=== PATIENT | female | born 1960 | race Caucasian/White ===

== ENCOUNTER 2019-12-24 11:16 | Inpatient (IN) | payer OTHER ==
[~2019-12-24] VITALS: Ht 162.6 cm; Wt 85.8 kg
--- NOTE | 2019-12-24 12:02 | NUR ---
ASSUMED PATIENT CARE. PATIENT TO BED 11 WITH C/O LEFT LOWER LEG PAIN/SWELLING/REDNESS WORSE X 1 WEEK.-COUGH, -FEVER,-SOB, REPORTS FEELING "WEAKER THAN NORMAL"
[2019-12-24 12:26] LABS: CALCIUM 8.2 mg/dL (8.5-10.1); CARBON DIOXIDE 25.8 mmol/L (21-32); CHLORIDE SERUM 93 mmol/L (98-107); CREATININE SERUM 1.3 mg/dL (0.6-1.0); GFR1 45 mL/min; GLUCOSE SERUM 117 mg/dL (74-106); POTASSIUM SERUM 3.3 mmol/L (3.5-5.1); SODIUM SERUM 129 mmol/L (136-145)
[2019-12-24 12:30] LABS: ALKALINE PHOSPHATASE 83 U/L (46-116); ALT/SGPT 39 U/L (14-59); AST/SGOT 49 U/L (15-37); TOTAL PROTEIN, SERUM 7.6 g/dL (6.4-8.2)
[2019-12-24 12:31] LABS: ALBUMIN 2.8 g/dL (3.4-5.0)
[2019-12-24 12:40] LABS: RED CELL DISTRIBUTION WIDTH 13.5 % (11.5-14.5)
[2019-12-24 12:50] LABS: PLATELET COUNT 123 x10^3mcL (130-400)
[2019-12-24 13:08] LABS: MONOCYTE 5 % (0-7); SEGMENTED NEUTROPHILS 85 % (37-75); rbc morphology (normal/abnorm) NORMAL (NORMAL)
--- NOTE | 2019-12-24 15:35 | NUR ---
PT TO 237 A-- REPORT TO WILIAM
[2019-12-24 16:26] VITALS: BP 109/53
--- NOTE | 2019-12-24 16:37 | NUR ---
RECEIVED PT FROM ER, PT ADMIT FOR LEFT LEG CELLULITIS. PT IS A/O X4, VERBAL RESPONSIVE. LUNG SOUND CLEAR BILATERAL, NO COUGH, NO SOB. PT IS ON 2L/MIN O2 VIA NC. PO2 95% JUST FOR COMFORT. PT IS ON TELE 24, NSR AT THIS MOMENT, DENY ANY CHEST PAIN OR DISCOMFORT. BOWEL SOUND PRESENT ALL 4 QUADRANTS, NO DISTENTION, NO TENDER. PEDAL PULSE PRESENT BOTH FEET, LEFT LOWER LEG RED AND SWELLING, NO OPEN SKIN NOTED AT THIS TIME. PT ADMIT SHE TOOK ILLEGAL DRUG SPEED YESTERDAY. AND LAST ETOH INTAKE WAS THE DAY BEFORE YESTERDAY. IV AT LEFT WRIST, NO LEAKING, NO INFILTRATION. ALL ADLS ASSIST, ALL NEED MET, CALL LIGHT IN REACH, WILL CONTINUE TO MONITOR.
--- NOTE | 2019-12-24 17:32 | NUR ---
NOTIFIED MD OF LEFT LEG X RAY RESULTS. RESULTS WERE NEGATIVE. NO FURTHER ORDERS AT THIS TIME.
--- NOTE | 2019-12-24 18:23 | NUR ---
NOTIFIED DR. ELY OF PATIENT'S POTASSIUM WHICH IS 3.3. AWAITING SUPPLEMENT ORDER. OTHERWISE, PATIENT HAS VOIDED, LINENS WERE CHANGED, AND PATIENT WAS SET UP TO EAT DINNER. WILL CONTINUE TO MONITOR PATIENT.
--- NOTE | 2019-12-24 20:00 | NUR ---
PT RESTING WITH EYES CLOSED. EASILY AROUSABLE WITH VERBAL STIMULI. A/A/O X4. DENIES DIZZINESS AND HEADACHE. BREATH SOUNDS CLEAR. BREATHING EVEN AND UNLABORED ON 2L NC, SPO2 95%. DENIES CHEST PAIN AND PRESSURE. BOWEL SOUNDS ACTIVE. NO C/O N/V AND ABD PAIN. ERYTHEMA AND SWELLING NOTED ON THE LEFT LOWER EXTREMITY SENIOR MEDIA PLANNER WARM TO TOUCH AND PAINFULL WHEN PRESSED. IV INTACT ON THE RIGHT WRIST INFUSING WITH NS AT 70 ML/HR. MADE PT COMFORTABLE. PLACED CALL LIGHT WITH IN REACH. WILL CONTINUE TO MONITOR.
[2019-12-24 20:52] VITALS: BP 101/59
[2019-12-25] VITALS (9 sets, daily range): BP systolic 76–105; BP diastolic 33–52
--- NOTE | 2019-12-25 01:34 | NUR ---
PT RESTING WITH EYES CLOSED. NO DISTRESS AND DISCOMFORT NOTED. WILL CONTINUE TO MONITOR.
--- NOTE | 2019-12-25 01:54 | NUR ---
PT RESTING WITH EYES CLOSED. NO DISTRESS AND DISCOMFORT NOTED. MADE PT COMFORTABLE. WILL CONTINUE TO MONITOR.
--- NOTE | 2019-12-25 05:59 | NUR ---
DR. ELY ACCOMPANIED TO THE PATIENTS ROOM. DOCTOR PUT SKIN JAMEY ON THE PATIENTS LEFT LEG. PT TOLERATED IT WELL. DENIES NEED FOR PAIN MEDICATION WHEN OFFERED. PATIENTS LEFT LEG WAS WARM TO TOUCH AND TIP OF TOES AND SOLE OF FEET WAS COOL TO TOUCH. USED DOPPLER TO HEAR PULSE OF THE PT. SUCCESFULLY HEARED PEDAL PULSE AND AND TIBIAL PULSE. DR. ELY MADE AWARE. WILL ENDORSE TO THE AM NURSE ACCORDINGLY.
--- NOTE | 2019-12-25 07:30 | NUR ---
PATIENT IS A&OX4, FOLLOWS COMMANDS AND COOPERATES WELL. HOWEVER, PATIENT DROWSY AT THIS TIME, RESPONDS TO VERBAL AND TACTILE STIMULI. TELE #24, ST, DENIES CHEST PAIN, NORMAL S1S2 HEART SOUNDS. PERIPHERAL PULSES PALPABLE W/ RLE +1 EDEMA, AND LLE +2 EDEMA. LUNG SOUNDS CTA BILATERALLY, ON 2L NC, O2 SAT 100%, DENIES SOB. NORMAOCTIVE BSX4, ABD SOFT AND FLAT, DENIES ABD PAIN. VOIDS USING BEDPAN. AMBUILATES WITH ASSISTANCE. BEDREST AT THIS TIME. LLE ERYTHEMA AND SWELLING NOTED. DENIES PAIN AT THIS TIME. IV SITE IS CDI. WILL CONTINUE TO MONITOR.
[2019-12-25 08:56] LABS: BASOPHIL % 0.2 % (0-2); PLATELET COUNT 142 x10^3mcL (130-400); RED CELL DISTRIBUTION WIDTH 13.7 % (11.5-14.5)
[2019-12-25 09:02] LABS: CALCIUM 7.7 mg/dL (8.5-10.1); CARBON DIOXIDE 29.9 mmol/L (21-32); CHLORIDE SERUM 98 mmol/L (98-107); CREATININE SERUM 0.8 mg/dL (0.6-1.0); GFR1 > 60 mL/min; GLUCOSE SERUM 191 mg/dL (74-106); POTASSIUM SERUM 3.3 mmol/L (3.5-5.1); SODIUM SERUM 131 mmol/L (136-145)
--- NOTE | 2019-12-25 12:30 | NUR ---
ZOFRAN GIVEN IV ON THE RFA NOT LFA. RESTARTS A NEW IV. IVF CAME OUT.
--- NOTE | 2019-12-25 12:35 | NUR ---
PER DR. SOLIS MD ORDERD 1000 ML NS BOLUS AT 1000 ML/HR DUE TO PATIENT'S LOW BLOOD PRESSURE. WILL RECHECK VITAL SIGNS WITHIN AN HOUR.
--- NOTE | 2019-12-25 14:23 | NUR ---
PATIENT'S BLOOD PRESSURE WAS 80/44 AFTER 1000 CC BOLUS OF NS. WILL PAGE DR. ELY, AND WILL RECHECK BP EVERY HOUR.
--- NOTE | 2019-12-25 14:58 | NUR ---
PATIENT HAD BM USING BEDSIDE COMMODE WITH MODERATE ASSISTANCE. WILL CONTINUE TO MONITOR PATIENT AT THIS TIME BLOOD PRESSURE IS LOW.
--- NOTE | 2019-12-25 18:34 | NUR ---
PATIENT'S BLOOD PRESSURE CURRENTLY AFTER FLUID BOLUS IS 85/49. PATIENT IS ASYMPTOMATIC AT THIS TIME AND DENIES ANY PAIN OR DISCOMFORT IN HER LEFT LEG. PATIENT IS CURRENTLY EATING DINNER. WILL ENDORSE DAY OF EVENTS TO HEALTH AND WELLNESS DIRECTOR NURSE.
--- NOTE | 2019-12-25 18:51 | NUR ---
MD WAS MADE AWARE OF CURRENT BLOOD PRESSURE OF 85/49 (61). MD STATED HE WILL ASSESS THE PATIENT'S FLUID STATUS. NO FURTHER ORDERS AT THIS TIME.
--- NOTE | 2019-12-25 19:30 | NUR ---
PT RECEIVED IN BED AWAKE, APPEARS TO BE DROWSY. PER REPORT PT HAS HAD LOW BLOOD PRESSURE AFTER GIVEN LASIX MEDICATION IN AM SHIFT. ASSESSED PT AT THIS TIME, PT IS A/O X 3, BP 82/36, HR 76 TAKEBN AT THE LEFT ARM. PT REPORTED FEELING OF DIZZY. PT PLACED IN TRENDELENBERG POSITION, RETAKEN BP AFTER 5 MIN 86/36. NOTIFIED DR. CAMARGO AND CHARGE NURSE STAN. WILL CONT TO MONITOR PT.
--- NOTE | 2019-12-25 19:50 | NUR ---
PT WAS SEEN AND EXAMINED BY DR. CAMARGO, CHARGE NURSE AT BED SIDE. BP TAKEN AT THE LEFT ARM, BP 77/45, HR 78, SPO2 95% 1L VIA NC. PT DENIED DIZZINESS AT THIS TIME. AWAITING FOR DR ESPINOZA.
--- NOTE | 2019-12-25 20:10 | NUR ---
IV INFILTRATED, CHARGE NURSE STAN AND RESOURCE NURSE MYRIAM TRYING TO ESTABLISH IV ACCESS, DR. CAMARGO AT BED SIDE PLANNING TO GIVE BOLUS.
--- NOTE | 2019-12-25 20:35 | NUR ---
PT RECEIVED IN BED AWAKE, APPEARS TO BE DROWSY. PER REPORT PT HAS HAD LOW BLOOD PRESSURE AFTER GIVEN LASIX MEDICATION IN AM SHIFT. ASSESSED PT AT THIS TIME, PT IS A/O X 3, BP 82/36, HR 76 TAKEBN AT THE LEFT ARM. PT REPORTED FEELING OF DIZZY. PT PLACED IN TRENDELENBERG POSITION, RETAKEN BP AFTER 5 MINS 86/36. NOTIFIED DR. CAMARGO AND CHARGE NURSE STAN. WILL CONT TO MONITOR PT.
--- NOTE | 2019-12-25 20:45 | NUR ---
BOLUS STARTED PER MD ORDER,PT HAS NO C/O DIZZINESS, BP 87/46, HR 78, SPO2 99% 1L VIA NC. WILL CONT TO MONITOR PT.
[2019-12-25 22:31] LABS: CALCIUM 7.6 mg/dL (8.5-10.1); CARBON DIOXIDE 28.8 mmol/L (21-32); CHLORIDE SERUM 104 mmol/L (98-107); GFR1 > 60 mL/min; GLUCOSE SERUM 121 mg/dL (74-106); POTASSIUM SERUM 3.9 mmol/L (3.5-5.1); SODIUM SERUM 135 mmol/L (136-145)
[2019-12-26 00:30] VITALS: BP 102/41
--- NOTE | 2019-12-26 00:48 | NUR ---
PT C/O OF LLE PAIN 11/27, REPOSITIONED PT, ELEVATED LLE, TORADOL GIVEN ORDERED. WILL CONT TO MONITOR PT FOR CHANGES IN CONDITION.
[2019-12-26 01:23] VITALS: BP 99/34
--- NOTE | 2019-12-26 01:43 | NUR ---
2.5 L TOTAL NS BOLUS ADMINISTERED, DR. CUTLER AWARE OF VS. PT PLACED ON MAINTANING FLUIDS NS @ 150 ML/HR PER MD ORDER. PT REPORT DECREASE IN PAIN TO 3/10, TOLERABLE AT THIS TIME. WILL CONT TO MONITOR.
--- NOTE | 2019-12-26 03:35 | NUR ---
TRANSFER NOTE: PEPITO ARRIVED VIA BED WITH THREE RN'S ON TACK MAKER. ASSISTED INTO THE BED AND PLACED ON MONITOR. LEFT LOWER LEG NOTED WITH EDEMA AND REDNESS NOTED. DR. OBRIEN INFORMED THAT THE PATIENT BLOOD PRESSURE IS LOW. PLANS FOR CENTRAL LINE. STARTED #20 GAUGE IN LEFT FOREARM PATIENT TOLERATED THIS WELL. WILL CONTINUE TO MONITOR. VANCOMYCIN UP AND INFUSING.
--- NOTE | 2019-12-26 05:45 | NUR ---
PT REFUSED CENTRAL LINE. DR FERNANDES, DR OBRIEN. PRESENT UPON PT REFUSAL. INFORMED OF REASONING FOR PROCEDURE AND RISKS. PT STILL CONTINUED REFUSAL.
--- NOTE | 2019-12-26 06:03 | NUR ---
PATIENT UNCOOPERATIVE WHILE THE RESIDENTS WERE TRYING TO PUT IN CENTRAL LINE. rESIDENT DECIDED TO WAIT UNTIL SEDATION KICKS IN
--- NOTE | 2019-12-26 07:30 | NUR ---
Levophed titrated down to 3 mcg/kg/min. BP:134/67, MAP:88. Will conitnue to monitor.
[2019-12-26 08:30] VITALS: BP 98/51
--- NOTE | 2019-12-26 08:30 | NUR ---
UPON ASSESSMENT, NOTED SWELLING AND REDNESS TO PT'S RH DUE TO IV INFILTRATION. RH PERIPHERAL 24G IV WAS DISCONTINUED. ARM WAS ELEVATED, RINGS WERE REMOVED AND PLACED IN PERSONAL BELONGINGS. NURSING MEASURES APPLY. WILL CONTINUE TO MONITOR.
--- NOTE | 2019-12-26 10:00 | NUR ---
DR. YEAGER AT BEDSIDE FOR ROUNDS, MADE KNOWN OF PT. SEDATION, MADE AWARE THAT LOVENOX ORDER HAD FALLEN OFF, 80 MG LOVENOX ORDERED VERIFIED BY DR. SWANSON AND PHARMACY, WILL CONTINUE TO MONITOR
[2019-12-26 10:02] LABS: RED CELL DISTRIBUTION WIDTH 13.2 % (11.5-14.5)
[2019-12-26 10:09] LABS: PLATELET COUNT 122 x10^3mcL (130-400)
--- NOTE | 2019-12-26 10:20 | NUR ---
DR SAMANIEGO AT BEDSIDE. ALL UPDATES PROVIDED. INFORMED PT ONLY HAD 1 PERIPHERAL IV AT THIS TIME AND PT IS ON PRESSORS. PER DR SAMANIEGO, PICC PLACEMENT NEEDED. WILL CARRY OUT ORDERS AND CONTINUE TO MONITOR.
[2019-12-26 10:26] LABS: CALCIUM 7.4 mg/dL (8.5-10.1); CARBON DIOXIDE 22.2 mmol/L (21-32); CHLORIDE SERUM 106 mmol/L (98-107); CREATININE SERUM 0.6 mg/dL (0.6-1.0); GFR1 > 60 mL/min; GLUCOSE SERUM 107 mg/dL (74-106); MAGNESIUM 1.7 mg/dL (1.8-2.4); PHOSPHOROUS 1.5 mg/dL (2.5-4.9); POTASSIUM SERUM 4.1 mmol/L (3.5-5.1); SODIUM SERUM 138 mmol/L (136-145)
--- NOTE | 2019-12-26 10:40 | NUR ---
dr uriarte and residents at bedside for morning rounds, all updates provided, per dr mark picc line to be ordered. primary rn made aware. will carry out orders and continue to monitor.
--- NOTE | 2019-12-26 10:51 | NUR ---
TITRATED LEVOPHED TO 2 MCG/MIN. BP IS 109/55, [place]:69. WILL CONTINUE TO MONITOR.
--- NOTE | 2019-12-26 11:29 | NUR ---
PICC LINE PLACE TO RUE. PT TOLERATED PROCEDURE WELL. PT IS STABLE AT THIS TIME. WILL CONTINUE TO MONITOR.
[2019-12-26 11:30] VITALS: BP 98/41
[2019-12-26 11:39] LABS: AMPHETAMINE QUAL UR POSITIVE (See below)
[2019-12-26 11:56] LABS: BAND NEUTROPHIL 1 % (0-10); MONOCYTE 8 % (0-7); SEGMENTED NEUTROPHILS 72 % (37-75)
[2019-12-26 11:57] LABS: rbc morphology (normal/abnorm) NORMAL (NORMAL)
--- NOTE | 2019-12-26 13:12 | NUR ---
LEVOPHED IS NOW INFUSING AT 1MCG/MIN. BP:123/51, MAP:70. WILL CONTINUE TO MONITOR.
--- NOTE | 2019-12-26 14:28 | NUR ---
LEVOPHED IS NOW OFF. BP:116/49, MAP:71. WILL CONTINUE TO MONITOR.
--- NOTE | 2019-12-26 14:53 | NUR ---
PT REMAINS STABLE AT THIS TIME. PT IS RESTING IN BED AND NO S/SX OF DISTRESS NOTED. BP REMAINS STABLE AT THIS TIME. WILL CONTINUE TO MONITOR.
[2019-12-26 15:35] VITALS: BP 105/50
--- NOTE | 2019-12-26 19:18 | NUR ---
REPORT GIVEN TO NOLBERTO DODSON. ALL QUESTIONS ANSWERED. PT IS STABLE AND RESTING IN BED.
[2019-12-26 20:00] VITALS: BP 99/52
[2019-12-27] VITALS (7 sets, daily range): BP systolic 100–119; BP diastolic 37–63
[2019-12-27 06:04] LABS: BASOPHIL % 0.3 % (0-2); PLATELET COUNT 173 x10^3mcL (130-400); RED CELL DISTRIBUTION WIDTH 13.8 % (11.5-14.5)
[2019-12-27 06:17] LABS: CARBON DIOXIDE 26.6 mmol/L (21-32); CHLORIDE SERUM 105 mmol/L (98-107); CREATININE SERUM 0.6 mg/dL (0.6-1.0); GFR1 > 60 mL/min; GLUCOSE SERUM 117 mg/dL (74-106); MAGNESIUM 1.6 mg/dL (1.8-2.4); PHOSPHOROUS 1.8 mg/dL (2.5-4.9); POTASSIUM SERUM 3.4 mmol/L (3.5-5.1); SODIUM SERUM 138 mmol/L (136-145)
--- NOTE | 2019-12-27 09:43 | NUR ---
LEVOPHED IS NOW INFUSING AT 3 MCG/MIN. BP:113/50, MAP:64.
--- NOTE | 2019-12-27 10:40 | NUR ---
LEVOPHED IS NOW INFUSING AT 2MCG/MIN. BP:118/58, MAP:81.
--- NOTE | 2019-12-27 10:42 | NUR ---
DR YEAGER AT BEDSIDE. ALL UPDATES PROVIDED. NEW ORDERS. WILL CARRY OUT AND CONTINUE TO MONITOR.
--- NOTE | 2019-12-27 12:23 | NUR ---
LEVOPHED IS NOWINFUSING AT 1 MCG/MIN. BP:107/47, MAP:67. WILL CONTINUE TO MONITOR.
--- NOTE | 2019-12-27 16:07 | NUR ---
LEVOPHED TURNED OFF AT THIS TIME. BP:116/60, MAP:76. WILL CONTINUE TO MONITOR.
--- NOTE | 2019-12-27 19:11 | NUR ---
REPORT GIVEN TO NOLBERTO DAVE. ALL QUESTIONS ANSWERED.
--- NOTE | 2019-12-27 19:41 | NUR ---
RECEIVED PATIENT REPORT FROM DAY ICU NURSE. PATIENT IS AAOX3, DENIES JUAREZ/DOZZINESS AT THIS TIME. BREATHING EVEN/UNLABORED BREATHING, ON RA WITH NO RESP DISTRESS NOTED. PATIENT ABD SOFT/ROUND, ACTIVE BOWEL SOUNDS. DENIES ABD PAIN. PATIENT DENIES ANY PAIN. NO CHEST PAIN. SR ON MONITOR. PICC LINE TO DMITRIY PATENT INFUSING NS AT 175ML/HR, DRESSING CDI. IV LFA PATENT, SL. LLE EDEMA/ERYTHEMA NOTED, REPORTS SOME DISCOMFORT ON HER LEFT LEG. RLE EDEMA, NOTED. PALPABLE PULSES. ASSISTED PATIENT TO BEDPAN, VOIDS FREELY. NO ACUTE DISTRESS NOTED. VS STABLE. SAFETY PRECAUTIONS IN PLACE. WILL MONITOR.
--- NOTE | 2019-12-27 21:30 | NUR ---
F/C IN PLACE/SECURED DRAINING YELLOW URINE.
[2019-12-28] VITALS (8 sets, daily range): BP systolic 83–144; BP diastolic 39–92; Ht 162.6 cm; Wt 85.8 kg
--- NOTE | 2019-12-28 00:51 | NUR ---
PATIENT RESTING, EASILY AROUSABLE. PATIENT IN NO ACUTE DISTRESS. SAFETY PRECAUTIONS IN PLACE. WILL MONITOR.
--- NOTE | 2019-12-28 03:18 | NUR ---
PATIENTS BP 83/39 (54), ASYMPTOMATIC. LEVOPHED AT 2MCG/MIN ORDERED. WILL MONITOR.
--- NOTE | 2019-12-28 05:20 | NUR ---
PATIENT SLEPT ON AND OFF THROUGHOUT THE NIGHT, NO ACUTE DISTRESS NOTED. PATIENT BREATHING EVEN/UNLABORED ON RA WITH NO RESP DISTRESS, O2SAT 96%. PATIENT DENIES COUGH, SOB. PATIENT ABLE TO TURN AND REPOSITIONED NEEDED. F/C IN PLACE/SECURED DRAINING YELLOW URINE. PICC LINE DMITRIY PATENT INFUSING WELL, NS AT 175ML/HR, LEVOPHED 2MCG/MIN WITH CURRENT BP OF 120/52. PATIENT NEEDS MET. MEDICATED PER EMAR. SAFETY PRECAUTIONS IN PLACE. WILL MONITOR.
[2019-12-28 05:49] LABS: BASOPHIL % 0.1 % (0-2); PLATELET COUNT 197 x10^3mcL (130-400); RED CELL DISTRIBUTION WIDTH 14.1 % (11.5-14.5)
[2019-12-28 06:01] LABS: CALCIUM 7.7 mg/dL (8.5-10.1); CARBON DIOXIDE 34.1 mmol/L (21-32); CHLORIDE SERUM 105 mmol/L (98-107); CREATININE SERUM 0.6 mg/dL (0.6-1.0); GFR1 > 60 mL/min; GLUCOSE SERUM 117 mg/dL (74-106); PHOSPHOROUS 2.1 mg/dL (2.5-4.9); POTASSIUM SERUM 3.4 mmol/L (3.5-5.1); SODIUM SERUM 137 mmol/L (136-145)
--- NOTE | 2019-12-28 07:20 | NUR ---
PATIENT REPORT GIVENT TO JESSICA ARVIZU, ALL QUESTIONS ADDRESSED.
--- NOTE | 2019-12-28 07:35 | NUR ---
RESTING IN BED WITH EYES CLOSED, ON SHIFT SUPERINTENDENT SHOWS NSR, BP 126/55, HR 73, RR 24, O2SAT 93% ON ROOM AIR. ON REGULAR DIET. LLE ERYTHEMA ANGELINA, TRACE EDEAM, KEPT ELEVATED ON PILLOWS. MELO CATHETER DRAINING TO GRAVITY YELLOW URINE IN COLOR. PICC LINE TO DMITRIY WITH LEVOPHED INFUSING AT 2MCG/MIN AND NS AT 175ML/HR. CALL LIGHT PLACED WITHIN EASY REACH. SIDERAILS UP X2.
--- NOTE | 2019-12-28 10:25 | NUR ---
DOCTOR YEAGER AND RESIDENTS AT BEDSIDE FOR AM ROUND. PATIENT MADE AWARE OF CURRENT CONDITION AND PLAN OF CARE. NOTED ORDER FOR NS BOLUS 1000ML X2 FROM DOCTOR SAMUELPAR, WILL BE CARRIED OUT.
--- NOTE | 2019-12-28 10:37 | NUR ---
WOUND CULTURE FROM LLE ABSCESS OBTAINED, WILL SEND TO LAB.
--- NOTE | 2019-12-28 14:29 | NUR ---
SITTING UP HAVING LATE LUNCH, NO ANY DISTRESS NOTED, O2SAT 94% BP 124/54, HR 65. DENIES PAIN.
--- NOTE | 2019-12-28 16:00 | NUR ---
ASSISTED TO USE BSC, C/O OF LLE PAIN WHILE SITTING ON BSC. HAD SOFT BM. ASSISTED BACK TO BED. BP AFTER HAD BM 98/51, HR 68. ON LEVOPHED 1MCG/MIN SINCE 1500HRS. DENIES DIZZINESS. WILL CONTINUE TO MONITOR.
--- NOTE | 2019-12-28 17:13 | NUR ---
NO ANY DISTRESS THROUGHOUT SHIFT. DENIES DIZZINESS. CURRENT BP 144/55(MAP 78), HR 69. LEVOPHED HELD. WILL CONTINUE TO MONITOR.
--- NOTE | 2019-12-28 18:44 | NUR ---
NOTED ORDER TO TRANSFER TO [facility]. FRENCH TEACHER MADE AWARE, PER HOUSE SUP BAO TRANSFER CAN BE DONE LATER. WILL ENDORSE TO INCOMING SHIFT.
--- NOTE | 2019-12-28 19:05 | NUR ---
CARE ASSUMED FROM OUTGOING RN. PT RESTING COMFORTABLY IN BED. NO ACUTE DISTRESS NOTED. EVEN AND UNLABORED RESPIRATIONS ON RA. ON EDITOR DEPARTMENT #1 READING SR 92. DMITRIY PICC IN PLACE, INFUSING IVF PER EMAR. LFA PERIPHERAL IV HEPLOCKED, INTACT. MELO IN PLACE, DRAINING YELLOW URINE VIA GRAVITY. NO C/O PAIN OR SOB AT THIS TIME. LLE ELEVATED ON PILLOW. BED IN LOWEST POSITION. SIDE RAILS UPX2. CALL LIGHT WITHIN REACH. WILL CONTINUE TO MONITOR.
--- NOTE | 2019-12-28 23:14 | NUR ---
PT RESTING COMFORTABLY IN BED WITH EYES CLOSED. NO ACUTE DISTRESS NOTED. EVEN AND UNLABORED RESPIRATIONS ON RA, SATTING 95%. ON PAYMASTER OF PURSES READING SB/SR 60. DMITRIY PICC PATENT X2 PORTS INFUSING IVF PER EMAR. MELO IN PLACE, DRAINING YELLOW URINE VIA GRAVITY, 660ML EMPTIED. NO BM NOTED. LLE, LINUX [employer] ADMINISTRATOR ELEVATED ON PILLOW. NO S/S PAIN OR SOB. BED IN LOWEST POSITION. SIDE RAILS UPX2. CALL LIGHT WITHIN REACH. WILL CONTINUE TO MONITOR.
[2019-12-29 03:07] VITALS: BP 107/50
[2019-12-29 07:52] VITALS: BP 97/51
--- NOTE | 2019-12-29 07:53 | NUR ---
AAO TIMES 4. BP 97/57, MAP 65. NO C/O PAIN. LUNGS CTA. O2 SAT ON RA 95%. BS'S ACTIVE TIMES 4. PERIPHERAL PULSES PALPABLE. +1 EDEMA LLE WITH BLANCHEABLE ERYTHEMA BELOW KNEE TO FOOT, AND CLOSED BLISTERS TO DORSAL INSIDE OF LLE AND ONE OPEN BLISTER. PIC LINE TO RUE PATENT, CDI. COOPERATIVE.
[2019-12-29 09:40] LABS: PLATELET COUNT 258 x10^3mcL (130-400); RED CELL DISTRIBUTION WIDTH 14.1 % (11.5-14.5)
[2019-12-29 10:01] LABS: ALKALINE PHOSPHATASE 84 U/L (46-116); ALT/SGPT 64 U/L (14-59); AST/SGOT 47 U/L (15-37); BILIRUBIN TOTAL 0.48 mg/dL (0.20-1.00); CALCIUM 7.7 mg/dL (8.5-10.1); CHLORIDE SERUM 107 mmol/L (98-107); CREATININE SERUM 0.8 mg/dL (0.6-1.0); GFR1 > 60 mL/min; GLUCOSE SERUM 90 mg/dL (74-106); POTASSIUM SERUM 3.7 mmol/L (3.5-5.1); SODIUM SERUM 139 mmol/L (136-145)
--- NOTE | 2019-12-29 10:08 | NUR ---
AUNT AL MICHAUD CALLED, PATIENT NATALIE SAID I COULD TELL HER INFORMATION. I GAVE HER MINIMAL INFORMATION, SHE WILL BE GOING UPSTAIRS TO TELE UNIT LATER TODAY, SHE IS DOING WELL. SHE SAID SHE WILL CALL HER LATER.
[2019-12-29 11:33] LABS: ALBUMIN 1.6 g/dL (3.4-5.0); TOTAL PROTEIN, SERUM 5.4 g/dL (6.4-8.2)
[2019-12-29 11:41] VITALS: BP 103/50
--- NOTE | 2019-12-29 17:06 | NUR ---
TRANSFERRED TO TELE UNIT, TELE # 2 SB TO , ROOM 236A. AAO TIMES 4. NO C/O PAIN. NO SOB. COOPERATIVE. SUE PEREZ LINE PATENT, CDI.
--- NOTE | 2019-12-29 20:27 | NUR ---
PT. AWAKE, ALERT, ORIENTED X4. DENIES HEADACHE OR DIZZINESS. SPEECH CLEAR, CONVERSATION APPROPRIATE. BREATH SOUNDS CLEAR THROUGHOUT LUNG DOUGLAS, RESP. EVEN, UNLABORED. NO SOB NOTED. PT. ON RA. ABD. SOFT AND ROUND, BOWEL SOUNDS ACTIVE. DENIES ABD. PAIN, DENIES NAUSEA. LLE WITH +1-2 EDEMA, REDNESS AND FLUSHING TO LLE. PEDAL PULSES TO BLE. MODERATE. F/C DRAINING WELL TO GRAVITY CLEAR YELLOW URINE. IVF NS AT 175CC/HR. CALL LIGHT WITHIN REACH.
[2019-12-29 21:36] VITALS: BP 100/44
--- NOTE | 2019-12-30 00:53 | NUR ---
NO COMPLAINTS THIS FAR. PT. RESTING QUIETLY. DOZING INTERMITTENTLY. CALL LIGHT REMAINS WITHIN REACH. IVF TO PICC LINE, IN-SITU
[2019-12-30 05:34] VITALS: BP 101/47
[2019-12-30 06:35] LABS: BASOPHIL % 0.6 % (0-2); PLATELET COUNT 324 x10^3mcL (130-400); RED CELL DISTRIBUTION WIDTH 13.9 % (11.5-14.5)
[2019-12-30 06:57] LABS: CALCIUM 7.8 mg/dL (8.5-10.1); CHLORIDE SERUM 108 mmol/L (98-107); CREATININE SERUM 0.8 mg/dL (0.6-1.0); GFR1 > 60 mL/min; GLUCOSE SERUM 88 mg/dL (74-106); MAGNESIUM 1.7 mg/dL (1.8-2.4); PHOSPHOROUS 3.2 mg/dL (2.5-4.9); POTASSIUM SERUM 3.8 mmol/L (3.5-5.1); SODIUM SERUM 142 mmol/L (136-145)
--- NOTE | 2019-12-30 07:20 | NUR ---
RECEIVED REPORT FROM LEXX ARVIZU. PT AAOX4. PT ON TELE #2. DENIES CHEST PAIN AT THIS TIME. PT ON RA. NO SOB OR DISTRESS. DENIES PAIN AT THIS TIME. PT IS STABLE W/ NO DISTRESS NOTED AT THIS TIME. PICC TO SUE, HELEN @175 CC/HR, CDI AND PATENT. ALL COMFORT AND SAFETY MEASURES IN PLACE. BED IN LOW POSITION, 2 SIDE RAILS UP. CALL LIGHT WITH IN REACH. ALL QUESTIONS AND CONCERNS ADDRESSED. WILL CONTINUE TO MONITOR PT.
[2019-12-30 08:15] VITALS: BP 98/49
--- NOTE | 2019-12-30 10:15 | NUR ---
DR ELY MADE AWARE OF MAG 1.7. ALL QUESTIONS AND CONCERNS ADDRESSED. ALL NEEDS MET AT THIS TIME. WILL CONTINUE TO MONITOR PT. AWAITING ORDERS.
--- NOTE | 2019-12-30 10:51 | NUR ---
WOUND CARE EVALUATION NOTE: PT IS AAX4 WOUND CARE EVAL AND TEACHING DONE, POC DISCUSSED WITH PRIMARY RN AND PT. PT. VERBALIZES UNDERSTANDING. -LLE MEDIAL ASPECT, PERIANKLE OPEN BLISTER 6X5CM WOUND BED RED ,SMALL AMOUNT PURULENT DRAINAGE, MILD ODOR, GIOVANNY WOUND SKIN ERYTHEMA, SWELLING PAIN 2/10 -LLE BELOW KNEE CLOSED CLEAR FLUIDS BLISTER, 2X3CM, GIOVANNY WOUND SKIN ERYTHEMA, MOIST,SWELLING PAIN 2/10 RECOMMENDATIONS: -CONTINUE IV ANTIBIOTIC FOR INFECTED WOUND PER ORDER -CLEANSE LLE WOUNDS WITH NS, PAT DRY APPLY ADAPTIC DRESSING AND COVER WITH DRY DRESSING, WRAP WITH KERLIX ROLL QD AND PRN IF SOILING -KEEP SKIN CLEAN AND DRY AT ALL TIMES. RECOMMENDATIONS DISCUSSED WITH PRIMARY RN. PLEASE CONTACT WOUND CARE NURSE FOR ANY QUESTIONS AND CHANGES IN SKIN CONDITION.
--- NOTE | 2019-12-30 11:00 | NUR ---
[facility] IN W/ PT. WOUND CARE DONE. ALL QUESTIONS AND CONCERNS ADDRESSED. ALL NEEDS MET AT THIS TIME. WILL CONTINUE TO MONITOR PT.
[2019-12-30 12:40] VITALS: BP 112/65
--- NOTE | 2019-12-30 14:46 | NUR ---
Initial Nutrition Assessment- Ricardo So Dunham, RM 236A, MR Dx: L leg pain and swelling PMHx: none significant PSHx: none noted Labs: Cl: 108H, BUN: 5L, CA: 7.8L, M.7L, total protein: 5.4L, albumin: 1.6L Meds: pro-amatine, Lasix, heparin sodium, Benadryl, Colace, lactinex, cleocin, Rocephin, sodium chloride, Toradol, Tylenol, zofran Diet: regular diet PO Intakes: 64% Po intake x 12 meals Ht: 5'4 Wt: 85.8 kg/188.76 lbs BMI: 32.5 IBW: 120 lbs %IBW: 157% UBW: unknown Age: 59 Food Allergies: NKFA Skin: blisters to LLE Dav: 19 Edema: none noted GI: last BM 12/28 Note (12/30/19): Per H&P- sepsis 2/2 cellulitis r/o abscess, thrombocytopenia in the setting of polycythemia, hyponatremia, hypokalemia, moderate protein calorie malnutrition, per progress note xray negative for osteomyelitis Pt reported she has not been eating well and that she has been sleeping. Pt thought the lunch at her bedside was dinner. Pt did not touch her lunch and reported she ate her breakfast meal, but not all of it. Pt reported some difficulty chewing due to only having 4 teeth, pt requested chopped diet Problem with: N/V/D/C: none Problems with: Chewing/Swallowing: pt reported difficulty chewing, pt reported having only 4 teeth, upon observation pt appeared to have a few teeth Current appetite: not eating well per pt Recent wt changes: unknown %wt change: N/A Vitamin/Supplement: none Special Diet at Home: none Physical activity: none Education: education was not provided at this time Estimated Nutritional Needs Based on IBW of 120 lbs/54.5kg Energy: 1635- 1908 kcal/d (30-35 kcal/kg for sepsis) Protein: 65- 82 (1.2-1.5 g/kg for sepsis) Fluid: 1635- 1908 mL/day (30-35 mL/kg) Nutrition Diagnosis 1) Increased nutrient needs (energy, protein) related to increased metabolic demands as evidenced by the diagnosis of sepsis 2) Inadequate oral intake related to lack of appetite, pt sleepy as evidenced by pt report and observed that pt did not eat lunch today Paged Dr. Acevedo- waiting for call back Intervention/RDN Recommendation(s): 1) Continue current diet 2) Recommend mechanical soft (chopped) diet 3) Recommend ensure BID to aid in PO intake Monitor/Evaluate Goal: have pt meet at least 75% of estimated nutrient needs (, ongoing) Monitor: PO intake, Labs, Skin integrity, Weights. F/U as MR in 3-5 days on 01/01-
--- NOTE | 2019-12-30 14:47 | NUR ---
Intervention/RDN Recommendation(s): 1) Continue current diet 2) Recommend mechanical soft (chopped) texture 3) Recommend ensure BID to aid in PO intake
[2019-12-30 17:10] VITALS: BP 126/70
--- NOTE | 2019-12-30 19:54 | NUR ---
REPORT GIVEN TO EDY ARVIZU. PT REMAINED STABLE THROUGHOUT MY SHIFT. ALL QUESTIONS AND CONCERNS ADDRESSED. ALL NEEDS MET AT THIS TIME. ALL CARES ENDORSED.
--- NOTE | 2019-12-30 21:30 | NUR ---
Awake and verbally responsive. No respiratory distress noted on room air. Denies pain. Denies n/v. LLE with dressing intact. All due meds given. Will cont. to monitor. Call light within reach.
[2019-12-30 22:24] VITALS: BP 111/57
--- NOTE | 2019-12-31 04:22 | NUR ---
Afebrile. No significant change in condition noted. Denies pain. Ambulated with assist. Continue on IV cleocin, rocephin. In no apparent distress.
[2019-12-31 06:24] VITALS: BP 107/57
[2019-12-31 07:19] LABS: CHLORIDE SERUM 107 mmol/L (98-107); CREATININE SERUM 0.8 mg/dL (0.6-1.0); GFR1 > 60 mL/min; GLUCOSE SERUM 99 mg/dL (74-106); MAGNESIUM 1.7 mg/dL (1.8-2.4); PHOSPHOROUS 3.9 mg/dL (2.5-4.9); POTASSIUM SERUM 3.8 mmol/L (3.5-5.1); SODIUM SERUM 142 mmol/L (136-145)
--- NOTE | 2019-12-31 07:32 | NUR ---
RECEIVED PT RESTING IN BED. NO ACUTE DISTRESS. SLEEPING BUT EASILY AROUSABLE. RESP EVEN AND UNLABORED ON RA. NO PAIN NOTED. IVF INFUSING, NO REDNESS OR SWELLING TO DMITRIY PICC, DRESSING C/D/I. DRESSING TO LLE, C/D/I. BED IN LOW POSITION, CALL LIGHT WITHIN REACH. WILL CONTINUE TO MONITOR.
[2019-12-31 07:38] LABS: BASOPHIL % 0.4 % (0-2); PLATELET COUNT 348 x10^3mcL (130-400); RED CELL DISTRIBUTION WIDTH 14.4 % (11.5-14.5)
[2019-12-31 08:28] VITALS: BP 96/55
[2019-12-31 11:56] VITALS: BP 121/55
--- NOTE | 2019-12-31 12:18 | NUR ---
PT RESTING IN BED. NO ACUTE DISTRESS. SLEEPING BUT AROUSABLE. BREATHING EVEN AND UNLABORED ON RA. NO PAIN NOTED. DRESSING TO LLE C/D/I. EDEMA NOTED TO LLE. DMITRIY PICC, DRESSING C/D/I. MELO CATHETER WITH 1500 ML YELLOW OUTPUT. CALL LIGHT WITHIN REACH. WILL CONTINUE TO MONITOR.
[2019-12-31] MEDS ORDERED: CEFUROXIME AXE500 MG PO (12:23)
[2019-12-31] MEDS ORDERED: CLINDAMYCIN300 M1 PO (12:25)
[2019-12-31] MEDS ORDERED: MIDODRINE HYDR2.5 MG PO (12:26)
[2019-12-31] MEDS ORDERED: LASIX20 MG PO (12:27)
[2019-12-31 12:50] VITALS: BP 121/55
--- NOTE | 2019-12-31 14:58 | NUR ---
PT AWAKE, ALERT, AND ORIENTED. VSS. AMBULATORY WITH MIN ASSIST. RX GIVEN. DISCHARGE EDUCATION PROVIDED, PT VERBALIZED UNDERSTANDING. PT EDUCATED ON DAILY DRESSING CHANGES FOR LLE WOUND, PT VERBALIZED UNDERSTANDING. PT GIVEN 7 DAYS SUPPLY OF DRESSING CHANGES. DMITRIY PICC DC'D BY DR. ELY, NO BLEEDING NOTED FROM SITE. TELE REMOVED. BELONGINGS WITH PT. KAMERON SIDDIQUI'D, PT VOIDED IN BATHROOM X1. PT WAITING FOR RIDE HOME. PT GIVEN CLOTHES FROM CLOSET, PT STATED THEY DO NOT FIT BUT HER BROTHER WILL BE BRINGING HER CLOTHES FROM HOME. WILL CONTINUE TO MONITOR.
--- NOTE | 2019-12-31 16:02 | NUR ---
PT DISCHARGED TO HOME IN NO ACUTE DISTRESS. AWAKE, ALERT, AND ORIENTED AT TIME OF DISCHARGE. BELONGINGS WITH PT. TRANSPORTED VIA WHEELCHAIR. NICHOLAS MEDRANO ACCOMPANIED PT TO LOBBY.
== END 2019-12-31 16:05 | disposition home or self-care (01) | DRG 720 ==
LOC: ED 11:16 → IC 14:32 → DU 14:32 → MU 14:32 → DU 16:13 → IC 12-26 02:29 → DU 12-29 16:41
PROVIDERS: Emergency Medicine; ADMIT Family Medicine; ATTEND Family Medicine
DX: A41.9 Sepsis, unspecified organism (principal); R65.21 Severe sepsis with septic shock; E44.0 Moderate protein-calorie malnutrition; D69.6 Thrombocytopenia, unspecified; E87.1 Hypo-osmolality and hyponatremia; E83.39 Other disorders of phosphorus metabolism; L03.116 Cellulitis of left lower limb; E87.6 Hypokalemia; Z88.1 Allergy status to other antibiotic agents; Z68.29 Body mass index [BMI] 29.0-29.9, adult; Z79.899 Other long term (current) drug therapy
CPT/HCPCS: 36556; 97116-GP; 97530-GP; G0378; J0692; J0696; J1642; J1644; J1885; J1940; J2060; J2250; J2405; J3370; J3475; J3490; J7030; Q0092